=== PATIENT | female | born 1960 | race Caucasian/White ===

== ENCOUNTER → 2017-11-23 | Outpatient (CLI) | payer BC ==
[~2017-11-23] MED LIST: ASPIR 8181 M1 PO; CALCIUM 500 +1 EACH PO; GLIMEPIRIDE4 MG PO; JANUVIA100 MG PO; LANTUS 3 M100 UNITS1 SC; LIPITOR40 MG PO; LISINOPRIL20 MG PO; METFORMIN HCL500 M1 PO; METFORMIN HCL500 MG PO; MIRENA52 MG IY; PANTOPRAZOLE SO40 MG PO; PRENATAL TABLE1 EAC3 PO
== END | disposition home or self-care (01) ==
LOC: CDC 12:11
DX: Z01.810 Encounter for preprocedural cardiovascular examination (principal); M65.332 Trigger finger, left middle finger; M79.642 Pain in left hand; I49.1 Atrial premature depolarization
CPT/HCPCS: 93000